=== PATIENT | female | born 1985 | race Caucasian/White ===

== ENCOUNTER 2017-09-04 13:56 | Emergency (ER) | payer SELFPAY ==
[2017-09-04] MEDS ORDERED: DIPH/PERTUSS(ACELL)/TETANUS VAC/PF 0.5 ML SYR (>=10YO) IM ONE (14:16)
--- NOTE | 2017-09-04 14:21 | ER Document Report ---
HPI - HPI Patient complains to provider of: dog bite Onset: Yesterday Onset/Duration: Sudden Quality of pain: Throbbing Severity: Mild Pain Level: 2 Context: Patient's own dog bit her on the left knee yesterday. She took in a foster dog yesterday who was trying to play with her dog, and when she went to move the dogs apart, her dog bit her. Dog is currently up-to-date on all immunizations. Associated Symptoms: None Exacerbated by: Walking Relieved by: Denies Similar symptoms previously: No Recently seen / treated by doctor: No - ROS ROS below otherwise negative: Yes Systems Reviewed and Negative: Yes All other systems reviewed and negative - CONSTITUTIONAL Constitutional: DENIES: Fever - EENT EENT: DENIES: Congestion - NEURO Neurology: DENIES: Headache - CARDIOVASCULAR Cardiovascular: DENIES: Chest pain - RESPIRATORY Respiratory: DENIES: Trouble Breathing - MUSCULOSKELETAL Musculoskeletal: REPORTS: Extremity pain - L DOG BITE TO KNEE - DERM Skin Problems: Puncture Wound - Left knee Past Medical History - General Information source: Patient - Social History Smoking Status: Never Smoker Chew tobacco use (# tins/day): No Frequency of alcohol use: Rare Drug Abuse: None Lives with: Family Family History: Reviewed & Not Pertinent Patient has suicidal ideation: No Patient has homicidal ideation: No Psychiatric Medical History: Reports: Hx Anxiety, Hx Depression Past Surgical History: Reports: Hx Section - x2 - Immunizations Hx Diphtheria, Pertussis, Tetanus Vaccination: No Vertical Provider Document - CONSTITUTIONAL Agree With Documented VS: Yes Exam Limitations: No Limitations General Appearance: WD/WN - INFECTION CONTROL TRAVEL OUTSIDE OF THE [place] IN LAST 30 DAYS: No - HEENT HEENT: Atraumatic, Normocephalic - RESPIRATORY Respiratory: Breath Sounds Normal, No Respiratory Distress - CARDIOVASCULAR Cardiovascular: Regular Rate, Regular Rhythm - MUSCULOSKELETAL/EXTREMETIES Musculoskeletal/Extremeties: Tender, Edema - Mild edema above left patella. 3 puncture wounds noted. No bleeding at this time. Patient able to bend and flex left knee without difficulty., Eccymosis Notes: Neurovascular and sensation intact the left foot, patient able to move toes freely - NEURO Level of Consciousness: Awake, Alert, Appropriate - DERM Integumentary: Laceration - 3 puncture wounds noted to patient's left knee. Course - Re-evaluation Re-evalutation: 09/04/17 14:47 X-ray normal and discussed with patient. - Vital Signs Vital signs: Temp Pulse Resp BP Pulse Ox 98.2 F 85 16 126/67 H 100 09/04/17 14:02 09/04/17 14:02 09/04/17 14:02 09/04/17 14:02 09/04/17 14:02 Procedures - Immobilization Left Knee Pre-Proc Neuro Vasc Exam: Normal Immobilizer type: Pasha wrap Performed by: PCT Post-Proc Neuro Vasc Exam: Normal Alignment checked and good: Yes Discharge - Discharge Clinical Impression: Dog bite of left knee Qualifiers: Encounter type: initial encounter Qualified Code(s): S81.052A - Open bite, left knee, initial encounter Condition: Good Disposition: HOME, SELF-CARE Additional Instructions: Antibiotics as prescribed Tylenol or ibuprofen as needed for pain Ice packs to knee Follow-up with your doctor next week if knee is not better Return to the emergency room for worsening symptoms. Prescriptions: Amox Tr/Potassium Clavulanate [Augmentin 875-125 mg Tablet] 1 tab PO BID #10 tablet Referrals: MAX CAMPBELL MD [NO LOCAL MD] - Follow up as needed
--- NOTE | 2017-09-04 15:02 | RADIOLOGY REPORT (SQ) ---
EXAM DESCRIPTION: KNEE LEFT 4 VIEW COMPLETED DATE/TIME: 09/04/2017 2:50 pm REASON FOR STUDY: dog bite COMPARISON: None. NUMBER OF VIEWS: Four views. TECHNIQUE: AP, lateral, and both oblique radiographic images acquired of the left knee. LIMITATIONS: None. FINDINGS: MINERALIZATION: Normal. BONES: No acute fracture or dislocation. No worrisome bone lesions. JOINT: No effusion. SOFT TISSUES: No soft tissue swelling. No radio-opaque foreign body. OTHER: No other significant finding. IMPRESSION: No soft tissue bony abnormality. No pathology identified related to the history dog bit e TECHNICAL DOCUMENTATION: JOB ID: [id number]- All Rights Reserved Reading location - IP/workstation name: [email or web address]
[2017-09-04 15:09] VITALS: BP 115/80
== END 2017-09-04 15:09 | disposition home or self-care (01) ==
LOC: ER 13:56
DX: S81.052A Open bite, left knee, initial encounter (principal); W54.0XXA Bitten by dog, initial encounter; Z23 Encounter for immunization
CPT/HCPCS: 90471; 90715; 99283

== ENCOUNTER → 2018-05-14 | Outpatient (CLI) | payer BC ==
--- NOTE | 2018-05-14 13:10 | RADIOLOGY REPORT (SQ) ---
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 TECHNIQUE: Dynamic and static green-scale images acquired of the thyroid gland. Selected additional c olor/power Doppler images recorded. All images stored to PACS. LIMITATIONS: None. FINDINGS: Thyroid gland is diffusely enlarged, with slightly heterogeneous echogenicity. No masses or cysts. Right lobe thyroid measures 5.6 x 2 x 2.4 cm in size. Left lobe thyroid measures 5.7 x 2.4 x 2.4 cm in size. Isthmus is thickened, 7 mm in thickness. IMPRESSION: Diffuse thyromegaly without focal masses or cysts TECHNICAL DOCUMENTATION: JOB ID: [id number]- All Rights Reserved Reading location - IP/workstation name: [email or web address]
== END ==
LOC: RAD 09:51
PROVIDERS: ATTEND Physician Assistant
DX: E01.0 Iodine-deficiency related diffuse (endemic) goiter (principal)
CPT/HCPCS: 76536